=== PATIENT | female | born 1975 | race Caucasian/White ===

== ENCOUNTER 2019-01-26 17:38 | Emergency (ER) | payer MEDICAID, OTHER ==
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
[2019-01-26] MEDS ORDERED: IOPAMIDOL (ISOVUE 370) 100 ML BTL IV ONE (18:30)
[2019-01-26 19:46] VITALS: BP 127/88
== END 2019-01-26 19:46 | disposition home or self-care (01) ==
LOC: EEVIPCON 17:38
DX: S62.398A Other fracture of other metacarpal bone, initial encounter for closed fracture (principal); M54.2 Cervicalgia; Y04.8XXA Assault by other bodily force, initial encounter; Y92.003 Bedroom of unspecified non-institutional (private) residence as the place of occurrence of the external cause; Z78.0 Asymptomatic menopausal state
CPT/HCPCS: 82435-PO; 82565-PO; 82947-PO; 84132-PO; 84295-PO; 84520-PO; 85014-ER; Q9967